=== PATIENT | male | born 1960 | race Caucasian/White ===

== ENCOUNTER 2018-03-13 14:51 | Emergency (ER) | payer SELFPAY ==
--- NOTE | 2018-03-13 15:16 | ED Physician Documentation ---
PD HPI ABD PAIN - Stated complaint Stated Complaint: ABD PX - History obtained from History obtained from: Patient - History of Present Illness Timing - onset: How many hours ago (4) Timing - duration: Hours (4) Timing - details: Abrupt onset, Still present, Constant Quality: Cramping, Aching, Pain Location: RLQ Radiation: Right flank Improved by: No: Eating, Laying still, Position Worsened by: No: Eating, Moving, Breathing, Position Associated symptoms: Nausea. No: Fever, Vomiting, Diarrhea, Dysuria, Hematuria , Near syncope / syncope Similar symptoms before: Has not had sx before Recently seen: Not recently seen Review of Systems Constitutional: denies: Fever, Chills, Myalgias Nose: denies: Rhinorrhea / runny nose, Congestion Throat: denies: Sore throat Cardiac: denies: Chest pain / pressure, Palpitations Respiratory: denies: Dyspnea, Cough GI: reports: Abdominal Pain, Nausea. denies: Vomiting, Constipation, Diarrhea, Bloody / black stool : denies: Dysuria, Frequency Skin: denies: Rash, Lesions Neurologic: denies: Near syncope, Syncope, Altered mental status Immunocompromised: denies: Immunocompromised PD PAST MEDICAL HISTORY - Past Medical History Cardiovascular: None Respiratory: None Neuro: None Endocrine/Autoimmune: None - Present Medications Home Medications: Ambulatory Orders Medication Instructions Recorded Confirmed Metoprolol Tartrate 50 mg PO 03/13/18 Naproxen [Naprosyn] 500 mg PO BID PRN #20 tablet 03/13/18 Ondansetron HCl [Zofran] 4 mg PO Q6H PRN #15 tablet 03/13/18 Oxycodone HCl/Acetaminophen 1 each PO Q6H PRN #20 tablet 03/13/18 [Percocet 5-325 mg Tablet] Tamsulosin [Flomax] 0.4 mg PO DAILY #5 capsule 03/13/18 Triamterene [Dyrenium] 50 mg PO 03/13/18 - Allergies Allergies/Adverse Reactions: Allergies Allergy/AdvReac Type Severity Reaction Status Date / Time No Known Drug Allergies Allergy Verified 03/13/18 15:12 PD ED PE NORMAL - Vitals Vital signs reviewed: Yes - General General: Alert and oriented X 3, Well developed/nourished, Other (appears in significant pain. Rocking back and forth. ) - Neck Neck: Supple, no meningeal sign, No adenopathy - Cardiac Cardiac: RRR, No murmur - Respiratory Respiratory: Clear bilaterally - Abdomen Abdomen: Normal bowel sounds, Soft, Non distended, No organomegaly, Other (no focal tenderness.) - Male Male : Other (no hernias; scrotum not tender.) - Rectal Rectal: Deferred - Back Back: No spinal TTP, Other (right flank tender to percussion.) - Derm Derm: Normal color, Warm and dry, No rash - Extremities Extremities: No deformity, No tenderness to palpate - Neuro Neuro: Alert and oriented X 3, No motor deficit, Normal speech Results - Vitals Vitals: Vital Signs - 24 hr 03/13/18 03/13/18 03/13/18 15:14 16:48 16:57 Temperature 36.7 C 36.7 C Heart Rate 80 92 Respiratory 22 16 Rate Blood Pressure 139/110 H 158/100 H O2 Saturation 100 98 Oxygen O2 Source Room air - Labs Labs: Laboratory Tests 03/13/18 03/13/18 03/13/18 15:25 15:25 15:45 WBC 13.0 H RBC 4.93 Hgb 15.9 Hct 44.7 MCV 90.7 MCH 32.3 H MCHC 35.6 RDW 12.6 Plt Count 266 MPV 7.6 Neut # (Auto) 11.8 H Lymph # (Auto) 0.7 L [place] # (Auto) 0.4 Eos # (Auto) 0.0 Baso # (Auto) 0.0 Absolute Nucleated RBC 0.01 Nucleated RBC % 0.1 Sodium 136 Potassium 3.4 L Chloride 97 L Carbon Dioxide 26 Anion Gap 13.0 BUN 17 Creatinine 1.4 H Estimated GFR (MDRD) 53 L Glucose 148 H Calcium 9.4 Total Bilirubin 1.4 H AST 34 ALT 29 Alkaline Phosphatase 62 Total Protein 8.1 Albumin 4.6 Globulin 3.5 Albumin/Globulin Ratio 1.3 Lipase 31 Urine Color DARK YELLOW Urine Clarity HAZY Urine pH 5.5 Ur Specific [place] >=1.030 H Urine Protein 100 H Urine Glucose (UA) NEGATIVE Urine Ketones 15 H Urine Occult Blood LARGE H Urine Nitrite NEGATIVE Urine Bilirubin NEGATIVE Urine Urobilinogen 0.2 (NORMAL) Ur Leukocyte Esterase NEGATIVE Urine RBC TNTC H Urine WBC 4-5 Ur Squamous Epith Cells RARE Squamous Urine Bacteria None Seen Urine Mucus Few Strands Ur Microscopic Review INDICATED Urine Culture Comments NOT INDICATED - Rads (name of study) kub ct Radiology: Prelim report reviewed (4x6 mm stone at distal ureter, with mild hydro. ) PD MEDICAL DECISION MAKING - ED course Complexity details: re-evaluated patient (much improved with meds. CT showing 4- 6mm stone at UVJ. Mild hydro. Presume passable.), considered differential ( Seems likely ureteral stone. Not focally tender on right, so less likely appy or gallbladder. Consider vascular. Not had stones in the past. Can get KUB CT to establish diagnosis. ) - Sepsis Event Vital Signs: Vital Signs - 24 hr 03/13/18 03/13/18 03/13/18 15:14 16:48 16:57 Temperature 36.7 C 36.7 C Heart Rate 80 92 Respiratory 22 16 Rate Blood Pressure 139/110 H 158/100 H O2 Saturation 100 98 Oxygen O2 Source Room air Departure - Departure Disposition: 01 Home, Self Care Clinical Impression: Right sided abdominal pain, Ureterolithiasis Condition: Stable Record reviewed to determine appropriate education?: Yes Instructions: ED Stone Renal W Colic Prescriptions: Naproxen [Naprosyn] 500 mg PO BID PRN #20 tablet PRN Reason: Pain Ondansetron HCl [Zofran] 4 mg PO Q6H PRN #15 tablet PRN Reason: Nausea / Vomiting Oxycodone HCl/Acetaminophen [Percocet 5-325 mg Tablet] 1 each PO Q6H PRN #20 tablet PRN Reason: Pain Tamsulosin [Flomax] 0.4 mg PO DAILY #5 capsule Comments: Drink lots of fluids. Use naproxen or ibuprofen 2-3 times a day for pain and as an anti-inflammatory. TMs loosen daily for the next few days to reduce ureter spasms and promote stone passage. He can continue it a day or 2 after the stone passes as there can be some spasms persist and cause some cramping after. Use Tylenol or oxycodone if needed for pain. Ondansetron if needed for nausea. Recheck if not completely improved over the next 2-3 days. Discharge Date/Time: 03/13/18 17:13
[2018-03-13] MEDS ORDERED: HYDROmorphone 1 MG/ML CARPUJECT IVP STA (15:35)
[2018-03-13] MEDS ORDERED: ONDANSETRON 4 MG/2 ML VIAL IVP STA (15:35)
[2018-03-13] MEDS ORDERED: LIDOCAINE-MPF 2% 7 ML in SODIUM CHLORIDE 0.9% 50 ML IV STA (15:35)
[2018-03-13] MEDS ORDERED: SODIUM CHLORIDE 0.9% 1,000 ML IV ONE (15:35)
[2018-03-13] MEDS ORDERED: KETOROLAC 60 MG/2 ML VIAL IVP STA (15:35)
[2018-03-13 15:53] LABS: EOSINOPHILS % (AUTO) 0.1 %; HGB - HEMOGLOBIN 15.9 g/dL (14.0-18.0); MONOCYTES # (AUTO) 0.4 10^3/uL (0.0-1.0); MONOCYTES % (AUTO) 3.1 %
[2018-03-13 15:58] LABS: BASOPHILS % (AUTO) 0.3 %; LYMPHOCYTES # (AUTO) 0.7 10^3/uL (1.5-3.5); LYMPHOCYTES % (AUTO) 5.6 %; MEAN CORPUSCULAR HEMOGLOBIN 32.3 pg (27.0-31.0); MEAN CORPUSCULAR HGB CONC 35.6 g/dL (32.0-36.0); MEAN CORPUSCULAR VOLUME 90.7 fL (80.0-94.0); MEAN PLATELET VOLUME 7.6 fL (7.4-11.4); NEUTROPHILS # (AUTO) 11.8 10^3/uL (1.5-6.6); NEUTROPHILS % (AUTO) 90.9 %; PLT - PLATELET COUNT 266 10^3/uL (130-450); RED BLOOD COUNT 4.93 10^6/uL (4.70-6.10); RED CELL DISTRIBUTION WIDTH 12.6 % (12.0-15.0)
[2018-03-13 15:58] LABS: GLUCOSE, URINE (UA) NEGATIVE (NEGATIVE); KETONES,URINE (UA) 15 mg/dL (NEGATIVE); LEUKOCYTE ESTERASE, URINE NEGATIVE (NEGATIVE); NITRITE,URINE NEGATIVE (NEGATIVE); OCCULT BLOOD,URINE LARGE (NEGATIVE); PH,URINE 5.5 PH (5.0-7.5); PROTEIN,URINE 100 mg/dL (NEGATIVE); UROBILINOGEN,URINE 0.2 (NORMAL) E.U./dL (NORMAL)
[2018-03-13 15:59] LABS: ALBUMIN 4.6 g/dL (3.2-5.5); ALBUMIN/GLOBULIN RATIO 1.3 (1.0-2.2); BILIRUBIN,TOTAL 1.4 mg/dL (0.2-1.0); CALCIUM 9.4 mg/dL (8.5-10.3); CREATININE 1.4 mg/dL (0.6-1.2); TOTAL PROTEIN 8.1 g/dL (6.7-8.2)
[2018-03-13 16:03] LABS: BILIRUBIN,URINE NEGATIVE (NEGATIVE); CLARITY,URINE HAZY (CLEAR); ICTOTEST,URINE NEGATIVE
[2018-03-13 16:04] LABS: BACTERIA,URINE None Seen /HPF (None Seen); MUCUS,URINE Few Strands; RBC,URINE TNTC /HPF (0-5); SQUAMOUS EPITHELIAL CELL,UR RARE Squamous (<= Few)
--- NOTE | 2018-03-13 16:10 | CT Report ---
Reason: right flank pain abruptly 4 hours ago Procedure Date: 03/13/2018 Accession Number: [id number] / [id number] Procedure: CT - KUB CPT Code: FULL RESULT: EXAM: CT ABDOMEN AND PELVIS (CT KUB) EXAM DATE: 03/13/2018 03:50 PM. CLINICAL HISTORY: Right flank pain abruptly 4 hours ago. COMPARISONS: None. TECHNIQUE: Routine axial helical CT imaging was performed through the abdomen and pelvis without IV contrast. Reconstructions: Coronal and sagittal. In accordance with CT protocol optimization, one or more of the following dose reduction techniques were utilized for this exam: automated exposure control, adjustment of mA and/or KV based on patient size, or use of iterative reconstructive technique. FINDINGS: Lung Bases: Calcified granulomas noted. Right Kidney/Ureter: Hydronephrosis, hydroureter, and perinephric fat stranding due to an obstructing 4 mm stone at the UVJ. No intrarenal stones. Left Kidney/Ureter: No stones, hydronephrosis, or hydroureter. No perinephric fat stranding. Other Solid Organs: Noncontrast images of the solid organs are grossly unremarkable. Gallbladder/Bile Ducts: Unremarkable. Peritoneal Cavity: No free fluid, free air or bacilio adenopathy. Bowel is grossly unremarkable. Pelvic Organs: Prostatic calcifications noted. Thick-walled empty bladder. Vasculature: Unremarkable. Other: Fat-containing umbilical hernia and left inguinal hernia noted. Degenerative disk disease at T12-L1 and L5-S1. IMPRESSION: Right hydronephrosis, hydroureter, and perinephric fat stranding due to an obstructing 4 mm UVJ stone. No intrarenal stones. [facility]
[2018-03-13] MEDS ORDERED: oxyCODONE 5 MG TABLET PO STA (16:38)
[2018-03-13] MEDS ORDERED: TAMSULOSIN 0.4 MG CAPSULE PO STA (16:38)
[2018-03-13 16:49] VITALS: BP 158/100
== END 2018-03-13 17:13 | disposition home or self-care (01) ==
LOC: ED 14:51
DX: N20.1 Calculus of ureter (principal)
CPT/HCPCS: 36415; 74176; 80053; 81001; 83690; 85025; 96361; 96374; 96375; 99284; A9270; J1170; J7040; 81003; 87086